=== PATIENT | male | born 1970 | race Caucasian/White ===

== ENCOUNTER 2022-09-21 12:51 | Outpatient (RCR) | payer OTHER, SELFPAY ==
--- NOTE | 2022-09-20 13:14 | PC.NURSE ---
Wound care Pt right thigh wound assessed appears to be healing well minimal drainage on dressing.Dressing change done packed with 1/2 inch gauze wet to dry with NS covered with 4x4 Gauze Pt has c/o pain Pt is happy with how his wound is progressing.
--- NOTE | 2022-09-27 16:42 | PC.NURSE ---
PACKED WOUND TO RIGHT THIGH WITH 3 INCHES OF 0.5INCH NU-GAUZE SOAKED IN SALINE. COVERED WITH BANDAID.
--- NOTE | 2022-09-28 13:10 | PC.NURSE ---
RIGHT THIGH WOUND PACKED WITH SALINE SOAKED NU-GAUZE AND COVERED WITH BANDAID. PATIENT DENIES PAIN TO WOUND OR DRAINAGE.
== END 2022-09-28 23:15 | disposition home or self-care (01) ==
LOC: MS OUT 12:51
PROVIDERS: PCP Physician Assistant; Visit Provider Surgery
DX: Z48.00 Encounter for change or removal of nonsurgical wound dressing (principal); S71.101D Unspecified open wound, right thigh, subsequent encounter
CPT/HCPCS: 99211